=== PATIENT | male | born 1990 | race Caucasian/White ===

== ENCOUNTER 2018-05-20 02:37 | Emergency (ER) | payer BC, OTHER, SELFPAY ==
[2018-05-20 02:40] VITALS: BP 112/49; PULSE 70; RESP 20; TEMP 36.7; O2SAT 100; BMI 26.4
--- NOTE | 2018-05-20 04:11 | ED.DCSUM_ITS ---
- ER Visit Summary Date of Service: 05/20/18 Chief Complaint: Scrotal injury History of Present Illness: The patient is a 27 M presents for evaluation of scrotal injury this evening. 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 States during event at 8 PM, landed awkwardly causing pain. States pain up into the abdomen. Nausea with pain. Currently denies any other symptoms. Denies any similar previous symptoms in the past. Does admit to history of gastric ulcer. Physical Examination: General: Alert and oriented ?3, no acute distress HEENT: Normocephalic, atraumatic. Moist mucosa membranes Neck: supple, nontender. Cardiovascular: Regular rate and rhythm, no murmurs Respiratory: Normal breath sounds, symmetric, no distress Abdomen: Soft, nontender, nondistended : There is no scrotal swelling or ecchymosis, however there is tenderness to the left scrotum. No hernias palpated. Extremities: Nontender, no edema, pulses intact ?4 Neuro: no focal neurological deficits. Test Results: [] Emergency Department Course and Treatment: Patient history concerns for a crush injury to the scrotum. There is no current swelling. He was able to urinate prior to arrival. History of gastric ulcers are for NSAIDs are avoided. Scrotal support discussed. Ice. Paris started along with a short prescription. Follow-up as an outpatient. Treatment Plan: [] Disposition: Discharge Impression: 1. Left scrotal crush injury This note was generated with [employer] dictation software. It may contain incorrect words, spelling, and punctuation that were not noted in review of the chart prior to signing ED Disposition - Plan for ED Patient: Disposition: Home or Assisted Living Chief Complaint: Male Pain/Injury Diagnosis: left scrotal crush injury Instructions: ED Contusion Testicles Or Scrotum Prescriptions: Hydrocodone Bitart/Apap 5-325 [Paris 5MG-325MG] 1 tablet PO Q6H PRN PRN 3 Days # 10 tablet PRN Reason: Pain Referrals: [facility] Doctor,Out of [Primary Care Provider] - 5-7 Days
[2018-05-20] MEDS: HYDROcodone Bitartrate/Apap 5/325 Tablet PO (04:18)
== END 2018-05-20 04:19 | disposition home or self-care (01) ==
PROVIDERS: Emergency Provider Emergency Medicine
DX: S38.02XA Crushing injury of scrotum and testis, initial encounter (principal); X58.XXXA Exposure to other specified factors, initial encounter; Y93.I9 Activity, other involving external motion; Y92.9 Unspecified place or not applicable; Z72.0 Tobacco use
CPT/HCPCS: 99283